=== PATIENT | male | born 1970 | race African-American/Black ===

== ENCOUNTER 2016-11-25 21:53 | Emergency (ER) | payer SELFPAY ==
--- NOTE | 2016-11-25 22:12 | ER Document Report ---
ED General - General Mode of Arrival: Medic Information source: Patient TRAVEL OUTSIDE OF THE [place] IN LAST 30 DAYS: No <DANTE VELA - Last Filed: 11/25/16 22:22> <MARIA NUÑEZ - Last Filed: 11/26/16 00:12> <NEMESIO QUILES - Last Filed: 11/26/16 08:04> - General Stated Complaint: ABDOMINAL PAIN Notes: 46 year old male presents to the ED via EMS intoxicated and aggressive complaining of rectal bleeding. Upon entering the room, the patient demanded that someone "look up my rectum" and threateningly approached the physician. [facility] security were already standing by the room secondary to a history of this patient arriving intoxicated and belligerent and complaining of rectal bleeding. Past [facility] reports indicate that no GI bleed was documented. Patient was not cooperative for a proper examination. (DANTE VELA) - Related Data Allergies/Adverse Reactions: No Known Allergies Allergy (Verified 09/22/15 19:09) Past Medical History - General Information source: [facility] Records - Social History Smoking Status: Unknown if Ever Smoked Frequency of alcohol use: Heavy Family History: Reviewed & Not Pertinent Neurological Medical History: Reports: Hx Seizures - Probably EtOH withdrawal seizure GI Medical History: Reports: Hx Cirrhosis Psychiatric Medical History: Reports: Hx Depression Past Surgical History: Reports: Hx Orthopedic Surgery - L forearm, Back - Immunizations Immunizations up to date: No Hx Diphtheria, Pertussis, Tetanus Vaccination: No - unknown <DANTE VELA - Last Filed: 11/25/16 22:22> Review of Systems - Review of Systems Gastrointestinal: See HPI, Rectal bleeding <DANTE VELA - Last Filed: 11/25/16 22:22> <MARIA NUÑEZ - Last Filed: 11/26/16 00:12> <NEMESIO QUILES - Last Filed: 11/26/16 08:04> - Review of Systems Notes: A comprehensive ROS was unobtainable secondary to the patient's status. (DANTE VELA) Physical Exam - General General appearance: Alert, Other - Patient was uncooperative and approached the physician threateningly. - Respiratory Respiratory status: No respiratory distress - Cardiovascular Rhythm: Regular - Extremities General upper extremity: Normal inspection, Normal ROM General lower extremity: Normal inspection, Normal ROM, Normal weight bearing - Psychological Associated symptoms: Aggressive, Angry, Combative, Uncooperative, Other - Patient was heavily intoxicated and aggressive. - Skin Skin Color: Normal <DANTE VELA - Last Filed: 11/25/16 22:22> - Vital signs Interpretation: Normal - General General appearance: Appears well, Alert In distress: None - HEENT Head: Normocephalic, Atraumatic Eyes: Normal Pupils: PERRL Neck: Normal - Respiratory Breath sounds: Normal - Abdominal Inspection: Normal - Back Back: Normal - Neurological Neuro grossly intact: Yes - Skin Skin Temperature: Warm Skin Moisture: Dry Skin Color: Normal <MARIA NUÑEZ - Last Filed: 11/26/16 00:12> <NEMESIO QUILES - Last Filed: 11/26/16 08:04> - Vital signs Vitals: Temp Pulse Resp BP Pulse Ox 98 F 82 18 131/92 H 100 11/25/16 22:25 11/25/16 22:25 11/25/16 22:25 11/25/16 22:25 11/25/16 22:25 (MARIA NUÑEZ) (NEMESIO QUILES) - Notes Notes: Patient is heavily intoxicated, uncooperative, and approached the physician threateningly. A complete physical exam was unobtainable because of the situation. (DANTE VELA) - General Notes: Of noxious, intoxicated, threatening (MARIA NUÑEZ) Course - Laboratory Result Diagrams: 11/25/16 22:05 11/25/16 22:05 <DANTE VELA - Last Filed: 11/25/16 22:22> - Laboratory Result Diagrams: 11/25/16 22:05 11/25/16 22:05 - Transfer of Care Care transferred to following provider: Dr. Quiles <MARIA NUÑEZ - Last Filed: 11/26/16 00:12> - Laboratory Result Diagrams: 11/25/16 22:05 11/25/16 22:05 <NEMESIO QUILES - Last Filed: 11/26/16 08:04> - Re-evaluation Re-evalutation: 11/25/16 23:39 Patient comes emergency room by EMS extremely alcohol intoxicated complaining of rectal bleeding. He has been here several times complaining of rectal bleeding while extremely intoxicated and always had stable hemoglobin. It appears this visit is no different from the previous visits. He is quite vulgar, yelling, and making threatening gestures. He was restrained by security, as is frequently the case with this patient. 11/26/16 00:12 The patient's alcohol level is 410, and he is positive for cocaine. His hemoglobin again is similar to the level is has been on every other visit. (MARIA NUÑEZ) Patient is now awake and alert. He looks well. I had him stand and walk. He has no tremor. He denies any symptoms of withdrawal. He does say he drinks daily. He is clinically sober. I did have him stand and walk down the hallway. He does have a slight limp with his left leg. He does not remember any trauma or injuries. He is able walk with only a mild limp. He denies any other pain other than mild headache which I suspect is from him having alcohol level of over 400 when he first arrived. At this time patient does says he feels good to go home. I encourage her to return to ER if he has any signs or symptoms of withdrawal, vomiting, or feels unwell. Patient agrees with plan will be discharged home. I talked to patient at length and informed him that he should drink alcohol in small amounts only to help prevent withdrawal. I informed him not to binge drink or drink large amounts. Patient agrees with plan will be discharged home. 11/26/16 08:00 (NEMESIO QUILES) - Vital Signs Vital signs: Temp Pulse Resp BP Pulse Ox 98 F 82 18 131/92 H 100 11/25/16 22:25 11/25/16 22:25 11/25/16 22:25 11/25/16 22:25 11/25/16 22:25 (MARIA NUÑEZ) (NEMESIO QUILES) - Laboratory Laboratory results interpreted by me: 11/25/16 11/25/16 11/25/16 22:05 22:05 23:00 RBC 3.69 L Hgb 11.9 L Hct 34.9 L RDW 17.7 H Plt Count 139 L AST 83 H Urine Blood LARGE H Acetaminophen < 10 L Serum Alcohol 410 H* (MARIA NUÑEZ) (NEMESIO QUILES) - Transfer of Care Notes: 11/26/16 00:19 Patient is currently in 4. restraint, she presenting alcohol level was 410. He is positive for cocaine. He will remain in restraints until he can cooperate and not be a threat to himself or others. When his alcohol level has dropped to an acceptable level, he may be discharged home with a responsible sober adult. (MARIA NUÑEZ) Discharge <DANTE VELA - Last Filed: 11/25/16 22:22> <MARIA NUÑEZ - Last Filed: 11/26/16 00:12> <NEMESIO QUILES - Last Filed: 11/26/16 08:04> - Discharge Clinical Impression: Cocaine abuse Alcohol intoxication Qualifiers: Complication of substance-induced condition: with unspecified complication Qualified Code(s): F10.129 - Alcohol abuse with intoxication, unspecified Condition: Stable Disposition: HOME, SELF-CARE Additional Instructions: Acute Alcohol Intoxication: Your evaluation revealed very high levels of alcohol. You can from drinking a large amount of alcohol rapidly! Further, there's the risk of falls , traffic accidents, and fights. A high portion (about 50 percent) of the serious injuries seen in hospital emergency rooms are caused by alcohol. Alcohol overdosage is usually due to an underlying emotional or psychiatric problem. You may benefit from counselling. If "binge" drinking is an ongoing problem for you, or if you drink ANY AMOUNT of alcohol EVERY day, you most likely have a tendency to alcoholism. You should avoid alcohol totally. We can refer you for treatment. Persons with alcohol problems are often also prone to other addictions -- you should discuss any use of medications or drugs with the doctor. You should be watched at home for the next several hours by someone who has not been drinking. Get extra fluids for the next 24 hours. Call the doctor if there is repeated vomiting, increasing headache, decreasing level of alertness, or any other worsening. Cocaine Abuse: Cocaine causes many dangerous medical problems. Problems can occur even with "usual" amounts. Cocaine affects judgement, creating a sense of invulnerability. Cocaine users often make bad decisions that seem "great" at the time. Most cocaine users eventually will be hurt by bad job performance, damaged personal relations, crime, and unsafe sexual practices. Toxic effects of cocaine can include seizures, hallucinations, delusions, high blood pressure, heart damage, or sudden . There's always the risk of a "bad batch." But heart attacks, brain hemorrhages, or cardiac arrest can occur unpredictably even with "normal" use. Injection of cocaine is risky for abscesses, endocarditis (heart infection) , pneumonia, and AIDS. STOP DRINKING ALCOHOL AND USING COCAINE. FOLLOW UP WITH [facility] FOR DETOX OPTIONS. Scribe Attestation: 11/25/16 23:41 I personally performed the services described in the documentation, reviewed and edited the documentation which was dictated to the scribe in my presence, and it accurately records my words and actions. (MARIA NUÑEZ) Scribe Documentation - Scribe Written by Lisa:: Lisa Jones, 11/25/2016 22:14 acting as scribe for :: Amanda <DANTE VELA - Last Filed: 11/25/16 22:22>
[2016-11-25 22:20] LABS: ABSOLUTE BASOPHILS # (AUTO) 0.1 10^3/uL (0.0-0.2); ABSOLUTE EOSINOPHILS # (AUTO) 0.1 10^3/uL (0.0-0.6); ABSOLUTE MONOCYTES (AUTO) 0.3 10^3/uL (0.1-1.4); ABSOLUTE NEUT (AUTO) 2.4 10^3/uL (1.7-8.2); BASOPHILS % (AUTO) 1.5 % (0-2); EOSINOPHILS % (AUTO) 1.2 % (0-6); HEMATOCRIT 34.9 % (37.9-51.0); HEMOGLOBIN 11.9 g/dL (13.5-17.0); HGB HCT DIFFERENCE 0.8; LYMPHOCYTES % (AUTO) 40.9 % (13-45); MEAN CORPUSCULAR HEMOGLOBIN 32.2 pg (27.0-33.4); MEAN CORPUSCULAR VOLUME 95 fl (80-97); MONOCYTES % (AUTO) 7.2 % (3-13); RED BLOOD COUNT 3.69 10^6/uL (4.35-5.55); RED CELL DISTRIBUTION WIDTH 17.7 % (11.5-14.0); SEGMENTED NEUTROPHILS % (AUTO) 49.2 % (42-78); WHITE BLOOD COUNT 4.8 10^3/uL (4.0-10.5)
[2016-11-25 22:33] LABS: ALANINE AMINOTRANSFERASE 72 U/L (21-72); ALBUMIN 4.7 g/dL (3.5-5.0); ALKALINE PHOSPHATASE 93 U/L (38-126); ANION GAP 13 (5-19); ASPARTATE AMINO TRANSFERASE 83 U/L (17-59); BILIRUBIN,TOTAL 0.5 mg/dL (0.2-1.3); BLOOD UREA NITROGEN 12 mg/dL (7-20); CALCIUM 8.7 mg/dL (8.4-10.2); CARBON DIOXIDE 25 mmol/L (22-30); CHLORIDE 106 mmol/L (98-107); CREATININE RESULT 0.68 mg/dL (0.52-1.25); GLUCOSE 86 mg/dL (75-110); LIPASE 149.2 U/L (23-300); POTASSIUM 4.3 mmol/L (3.6-5.0); SODIUM 144.2 mmol/L (137-145); TOTAL PROTEIN 7.6 g/dL (6.3-8.2)
[2016-11-25 22:54] LABS: ALCOHOL 410 mg/dL (NONE DETECTED)
[2016-11-25 23:43] LABS: APPEARANCE,URINE CLEAR; BILIRUBIN,URINE NEGATIVE (NEGATIVE); GLUCOSE, URINE NEGATIVE (NEGATIVE); KETONES,URINE NEGATIVE (NEGATIVE); LEUKOCYTE ESTERASE,URINE NEGATIVE (NEGATIVE); NITRITE,URINE NEGATIVE (NEGATIVE); PROTEIN,URINE NEGATIVE (NEGATIVE); URINE SPECIFIC GRAVITY 1.009; UROBILINOGEN,URINE NEGATIVE mg/dL (<2.0)
[2016-11-26 00:03] LABS: URINE BARBITURATES SCREEN NEGATIVE; URINE METHADONE SCREEN NEGATIVE; URINE PHENCYCLIDINE SCREEN NEGATIVE
[2016-11-26 08:37] VITALS: BP 125/68
== END 2016-11-26 08:38 | disposition home or self-care (01) ==
LOC: ER 21:53
DX: F14.90 Cocaine use, unspecified, uncomplicated (principal); F10.129 Alcohol abuse with intoxication, unspecified; R51 Headache; K62.5 Hemorrhage of anus and rectum; Y90.8 Blood alcohol level of 240 mg/100 ml or more; Z78.1 Physical restraint status
CPT/HCPCS: 99285; 36415; 83690; 85025; 80053; 81001; G0479 ×3; 80307

== ENCOUNTER 2017-04-16 01:07 | Emergency (ER) | payer SELFPAY ==
[2017-04-16 02:06] LABS: APPEARANCE,URINE CLEAR; BILIRUBIN,URINE NEGATIVE (NEGATIVE); GLUCOSE, URINE NEGATIVE (NEGATIVE); KETONES,URINE NEGATIVE (NEGATIVE); LEUKOCYTE ESTERASE,URINE NEGATIVE (NEGATIVE); NITRITE,URINE NEGATIVE (NEGATIVE); PROTEIN,URINE 30 mg/dL (NEGATIVE); URINE SPECIFIC GRAVITY 1.006; UROBILINOGEN,URINE NEGATIVE mg/dL (<2.0)
--- NOTE | 2017-04-16 02:50 | ER Document Report ---
ED General - General Chief Complaint: ETOH Abuse Stated Complaint: FALL TWO DAYS AGO AND SIDE PAIN Time Seen by Provider: 04/16/17 02:40 Mode of Arrival: Ambulatory Information source: Patient TRAVEL OUTSIDE OF THE [place] IN LAST 30 DAYS: No - HPI Notes: Patient is a 46-year-old black male history of alcoholism presents emergency department with report that 2 days ago he accidentally fell off his porch landing on a wood pile on his left side and since that time is had pain to the left postero-lateral chest wall and to the abdomen with bruising. He denies any anterior chest pain. He reports no cough or congestion. He denies any constipation diarrhea dysuria nausea or vomiting. He reports no head injury or neck pain. No midline posterior back pain. No numbness or paresthesia. - Related Data Allergies/Adverse Reactions: No Known Allergies Allergy (Verified 04/16/17 01:39) Past Medical History - General Information source: Patient - Social History Smoking Status: Current Every Day Smoker Chew tobacco use (# tins/day): No Frequency of alcohol use: Heavy Drug Abuse: None Lives with: Family Family History: Reviewed & Not Pertinent Neurological Medical History: Reports: Hx Seizures - Probably ETOH withdrawal seizure Renal/ Medical History: Denies: Hx Peritoneal Dialysis GI Medical History: Reports: Hx Cirrhosis Psychiatric Medical History: Reports: Hx Depression Past Surgical History: Reports: Hx Orthopedic Surgery - L forearm, Back - Immunizations Immunizations up to date: No Hx Diphtheria, Pertussis, Tetanus Vaccination: No - unknown Review of Systems - Review of Systems Notes: REVIEW OF SYSTEMS: CONSTITUTIONAL : Denies fever, chills, or sweats. Denies recent illness. EENT: Denies eye, ear, throat, or mouth pain or symptoms. Denies nasal or sinus congestion or discharge. Denies throat, tongue, or mouth swelling or difficulty swallowing. CARDIOVASCULAR: Denies palpitations or racing or irregular heart beat. Denies ankle edema. RESPIRATORY: Denies cough, cold, or chest congestion. Denies shortness of breath, difficulty breathing, or wheezing. GASTROINTESTINAL: Denies nausea, vomiting, or diarrhea. Denies blood in vomitus, stools, or per rectum. Denies black, tarry stools. Denies constipation. GENITOURINARY: Denies difficulty urinating, painful urination, burning, frequency, blood in urine, or discharge. MUSCULOSKELETAL: Denies back or neck pain or stiffness. Denies joint pain or swelling. SKIN: Denies rash, lesions or sores. HEMATOLOGIC : Patient reports easy bruising. LYMPHATIC: Denies swollen, enlarged glands. NEUROLOGICAL: Denies confusion or altered mental status. Denies passing out or loss of consciousness. Denies dizziness or lightheadedness. Denies headache. Denies weakness or paralysis or loss of use of either side. Denies problems with gait or speech. Denies sensory loss, numbness, or tingling. Denies seizures. PSYCHIATRIC: Denies anxiety or stress. Denies depression, suicidal ideation, or homicidal ideation. ALL OTHER SYSTEMS REVIEWED AND NEGATIVE. Physical Exam - Vital signs Vitals: Temp Pulse Resp BP Pulse Ox 97.8 F 84 18 130/94 H 98 04/16/17 01:14 04/16/17 01:14 04/16/17 01:14 04/16/17 01:04/16/17 01:14 - Notes Notes: PHYSICAL EXAMINATION: GENERAL: Well-appearing, well-nourished and in no acute distress. Very obvious smell of alcohol. HEAD: Atraumatic, normocephalic. EYES: Pupils equal round and reactive to light, extraocular movements intact, sclera anicteric, conjunctiva are injected bilaterally. ENT: Nares patent, oropharynx clear without exudates. Moist mucous membranes. NECK: Normal range of motion, supple without lymphadenopathy LUNGS: Breath sounds clear to auscultation bilaterally and equal. No wheezes rales or rhonchi. HEART: Regular rate and rhythm without murmurs ABDOMEN: nondistended abdomen. No guarding, no rebound. No masses appreciated. Tender with bruising through the left posterolateral rib cage extending into the abdomen. There is no subcutaneous emphysema or gross crepitance, but there is obvious contusion and mild swelling noted. No evidence for abscess or cellulitis. Musculoskeletal: Normal range of motion, no pitting or edema. No cyanosis. NEUROLOGICAL: Cranial nerves grossly intact. Normal speech, normal gait. Normal sensory, motor exams PSYCH: Normal mood, normal affect. SKIN: Warm, Dry, normal turgor, no rashes or lesions noted. Course - Re-evaluation Re-evalutation: 04/16/17 06:53 Vital signs remained stable. No evidence for significant anemia or electrolyte imbalance. Patient's mild alcoholic hepatitis again is presented. Patient has thrombocytopenia without obvious evidence for active bleeding. Discussion was undertaken at length with the patient concerning his alcohol abuse and the resultant thrombocytopenia and alcoholic hepatitis. No evidence for acute hemothorax, rib fracture, splenic injury or other abnormality. - Vital Signs Vital signs: Temp Pulse Resp BP Pulse Ox 98.3 F 84 16 112/71 97 04/16/17 06:15 04/16/17 01:14 04/16/17 06:16 04/16/17 06:16 04/16/17 06:16 - Laboratory Result Diagrams: 04/16/17 01:32 04/16/17 01:32 Laboratory results interpreted by me: 04/16/17 04/16/17 04/16/17 01:32 01:32 01:32 WBC 3.1 L RBC 3.45 L Hgb 11.2 L Hct 34.0 L MCV 99 H RDW 18.9 H Plt Count 54 L Lymphocytes % 47.5 H Absolute Neutrophils 1.3 L Direct Bilirubin 0.5 H AST 233 H ALT 155 H Lipase 320.3 H Urine Protein 30 H Urine Blood LARGE H Serum Alcohol 416 H* Discharge - Discharge Clinical Impression: Thrombocytopenia Alcohol intoxication Qualifiers: Complication of substance-induced condition: with unspecified complication Qualified Code(s): F10.929 - Alcohol use, unspecified with intoxication, unspecified Fall Qualifiers: Encounter type: initial encounter Qualified Code(s): W19.XXXA - Unspecified fall, initial encounter Chest wall contusion Qualifiers: Encounter type: initial encounter Laterality: left Qualified Code(s): S20.212A - Contusion of left front wall of thorax, initial encounter Abdominal wall contusion Qualifiers: Encounter type: initial encounter Qualified Code(s): S30.1XXA - Contusion of abdominal wall, initial encounter Condition: Stable Disposition: HOME, SELF-CARE Instructions: Acute Alcohol Intoxication ([facility]), Contusion ([facility]), Thrombocytopenia ([facility])
[2017-04-16 03:18] LABS: ABSOLUTE LYMPHOCYTES (AUTO) 1.5 10^3/uL (0.5-4.7); ABSOLUTE MONOCYTES (AUTO) 0.3 10^3/uL (0.1-1.4); ABSOLUTE NEUT (AUTO) 1.3 10^3/uL (1.7-8.2); BASOPHILS % (AUTO) 0.3 % (0-2); EOSINOPHILS % (AUTO) 0.9 % (0-6); HEMOGLOBIN 11.2 g/dL (13.5-17.0); HGB HCT DIFFERENCE -0.4; LYMPHOCYTES % (AUTO) 47.5 % (13-45); MEAN CORPUSCULAR HEMOGLOBIN 32.5 pg (27.0-33.4); MEAN CORPUSCULAR VOLUME 99 fl (80-97); MONOCYTES % (AUTO) 8.4 % (3-13); PROTHROMBIN TIME 11.9 SEC (11.4-15.4); RED BLOOD COUNT 3.45 10^6/uL (4.35-5.55); RED CELL DISTRIBUTION WIDTH 18.9 % (11.5-14.0); SEGMENTED NEUTROPHILS % (AUTO) 42.9 % (42-78); WHITE BLOOD COUNT 3.1 10^3/uL (4.0-10.5)
[2017-04-16 03:20] LABS: ALANINE AMINOTRANSFERASE 155 U/L (21-72); ALBUMIN 4.3 g/dL (3.5-5.0); ALKALINE PHOSPHATASE 108 U/L (38-126); ANION GAP 15 (5-19); ASPARTATE AMINO TRANSFERASE 233 U/L (17-59); BILIRUBIN,DIRECT 0.5 mg/dL (0.0-0.4); BILIRUBIN,TOTAL 0.8 mg/dL (0.2-1.3); BLOOD UREA NITROGEN 8 mg/dL (7-20); CALCIUM 8.9 mg/dL (8.4-10.2); CARBON DIOXIDE 26 mmol/L (22-30); CHLORIDE 102 mmol/L (98-107); CREATININE RESULT 0.61 mg/dL (0.52-1.25); GLUCOSE 95 mg/dL (75-110); LIPASE 320.3 U/L (23-300); POTASSIUM 3.7 mmol/L (3.6-5.0); SODIUM 143.1 mmol/L (137-145); TOTAL PROTEIN 7.7 g/dL (6.3-8.2)
[2017-04-16 03:29] LABS: URINE BARBITURATES SCREEN NEGATIVE; URINE METHADONE SCREEN NEGATIVE; URINE OPIATES LOW NEGATIVE; URINE PHENCYCLIDINE SCREEN NEGATIVE
[2017-04-16 03:34] LABS: ANISOCYTOSIS 2+; MICROCYTOSIS SLIGHT; TARGET CELLS 2+
[2017-04-16 03:48] LABS: ALCOHOL 416 mg/dL (NONE DETECTED)
--- NOTE | 2017-04-16 04:50 | RADIOLOGY REPORT (SQ) ---
EXAM DESCRIPTION: CT ABD/PELVIS WITH IV ONLY COMPLETED DATE/TIME: 04/16/2017 4:33 am REASON FOR STUDY: fall with left chest and L abd pain COMPARISON: None. TECHNIQUE: CT scan of the abdomen and pelvis performed using helical scanning technique with dynamic intravenous contrast injection. No oral contrast. Images reviewed with lung, soft tissue, and bone windows. Reconstructed coronal and sagittal MPR images reviewed. Delayed images for evaluation of the urinary system also acquired. All images stored on PACS. All CT scanners at this facility use dose modulation, iterative reconstruction, and/or weight based d osing when appropriate to reduce radiation dose to as low as reasonably achievable (ALARA). [facility]: Dose Right [facility]: CareDose [facility]: Dose Right [facility]: Teradose 4D [facility]: [place] CONTRAST TYPE AND DOSE: 83mL Isovue 370- low osmolar. RENAL FUNCTION: Creatinine 0.6 RADIATION DOSE: 10.06mGy. LIMITATIONS: None. FINDINGS: LOWER CHEST: No significant findings. No nodules or infiltrates. LIVER: Normal size. No masses or dilated ducts. Hepatic steatosis. SPLEEN: Normal size. No focal lesions. PANCREAS: No masses. No significant calcifications. No adjacent inflammation or peripancreatic fluid collections. Pancreatic duct not dilated. GALLBLADDER: No identified stones by CT criteria. No inflammatory changes to suggest cholecystitis. ADRENAL GLANDS: No significant masses or asymmetry. RIGHT KIDNEY AND URETER: 1.3 cm likely benign left renal cyst not definitively characterized. No sig nificant calcifications. No hydronephrosis or hydroureter. LEFT KIDNEY AND URETER: No solid masses. No significant calcifications. No hydronephrosis or hydr oureter. AORTA AND VESSELS: No aneurysm. No dissection. Renal arteries, SMA, celiac without stenosis. RETROPERITONEUM: No retroperitoneal adenopathy, hemorrhage or masses. BOWEL AND PERITONEAL CAVITY: No masses or inflammatory changes. No free fluid or peritoneal masses. APPENDIX: Normal. PELVIS: No mass or free fluid. Normal bladder. ABDOMINAL WALL: No masses. No hernias. BONES: No significant or acute findings. OTHER: No other significant finding. IMPRESSION: No acute findings. TECHNICAL DOCUMENTATION: JOB ID: [id number] Quality ID # [id number]: Final reports with documentation of one or more dose reduction techniques (e.g., Au tomated exposure control, adjustment of the mA and/or kV according to patient size, use of iterative reconstruction technique) 2010 [employer]- All Rights Reserved
--- NOTE | 2017-04-16 04:52 | RADIOLOGY REPORT (SQ) ---
"EXAM DESCRIPTION: CT CHEST WITH COMPLETED DATE/TIME: 04/16/2017 4:33 am REASON FOR STUDY: fall with left chest and L abd pain COMPARISON: None. TECHNIQUE: CT scan of the chest performed using helical scanning technique with dynamic intravenous contrast injection. Images reviewed with lung, soft tissue and bone windows. Reconstructed coronal and sagittal MPR images reviewed. All images stored on PACS. All CT scanners at this facility use dose modulation, iterative reconstruction, and/or weight based d osing when appropriate to reduce radiation dose to as low as reasonably achievable (ALARA). [facility]: Dose Right [facility]: CareDose [facility]: Dose Right [facility]: Teradose 4D [facility]: [employer] CONTRAST TYPE AND DOSE: 83mL Isovue 370- low osmolar. RENAL FUNCTION: Creatinine 0.6 RADIATION DOSE: 603 mgy-cm LIMITATIONS: None. FINDINGS: LUNGS AND PLEURA: No opacities, nodules, masses. No pneumothorax. No effusions. HILAR AND MEDIASTINAL STRUCTURES: No identified masses or abnormal nodes. HEART AND VASCULAR STRUCTURES: No aneurysm or dissection. No central pulmonary emboli. No pericardi al effusion. HARDWARE: None in the chest. UPPER ABDOMEN: See separate report of the CT of the abdomen. THYROID AND OTHER SOFT TISSUES: No masses. No adenopathy. BONES: No significant finding. OTHER: No other significant finding. IMPRESSION: NORMAL CT OF THE CHEST WITH IV CONTRAST. TECHNICAL DOCUMENTATION: JOB ID: [id number] Quality ID # [id number]: Final reports with documentation of one or more dose reduction techniques (e.g., Au tomated exposure control, adjustment of the mA and/or kV according to patient size, use of iterative reconstruction technique) 2010 [employer] | [employer]- All Rights Reserved"
[2017-04-16 06:18] VITALS: BP 112/71
== END 2017-04-16 06:35 | disposition home or self-care (01) ==
LOC: ER 01:07
DX: S20.212A Contusion of left front wall of thorax, initial encounter (principal); S30.1XXA Contusion of abdominal wall, initial encounter; W17.89XA Other fall from one level to another, initial encounter; F10.229 Alcohol dependence with intoxication, unspecified; D69.6 Thrombocytopenia, unspecified; K70.10 Alcoholic hepatitis without ascites; F17.200 Nicotine dependence, unspecified, uncomplicated
CPT/HCPCS: 36415; 71260; 74177; 80053; 80307; 81001; 83690; 85025; 85610; 99284

== ENCOUNTER 2018-02-25 02:01 | Emergency (ER) | payer SELFPAY ==
[2018-02-25] MEDS ORDERED: FAMOTIDINE 20 MG TABLET PO ONE (02:16)
[2018-02-25] MEDS ORDERED: HALOPERIDOL LACTATE INJ 5 MG/1 ML VIAL IV ONE (02:16)
--- NOTE | 2018-02-25 02:18 | ER Document Report ---
ED General - General Chief Complaint: Chest Pain Stated Complaint: CHEST PAIN Time Seen by Provider: 02/25/18 02:08 Cannot obtain history due to: Intoxicated Notes: Patient is a 47-year-old male with a past medical history of chronic daily alcohol abuse, history of alcohol withdrawal seizures, who presents with multiple complaints. Patient states that he has been having chest pain to the left side of the chest but when he points to the areas of pain he points to the entire chest abdomen and pelvis and back. He has difficulty characterizing what improves or worsens this pain. He denies that he is new or different about his pain today relative to the past several days. He does report that he had vomiting today that contains small amount of blood but has subsequently not had any additional episodes of vomiting. He has not seen his primary care doctor regarding these concerns. He denies any known cardiac history. Denies any trauma to the chest wall. Admits to heavy alcohol use today and is visibly intoxicated. TRAVEL OUTSIDE OF THE [place] IN LAST 30 DAYS: No - Related Data Allergies/Adverse Reactions: No Known Allergies Allergy (Verified 04/16/17 01:39) Past Medical History - General Information source: Patient - Social History Smoking Status: Current Every Day Smoker Frequency of alcohol use: Heavy Drug Abuse: None Lives with: Alone Family History: Reviewed & Not Pertinent Patient has suicidal ideation: No Patient has homicidal ideation: No Neurological Medical History: Reports: Hx Seizures - Probably ETOH withdrawal seizure Renal/ Medical History: Denies: Hx Peritoneal Dialysis GI Medical History: Reports: Hx Cirrhosis Psychiatric Medical History: Reports: Hx Depression Past Surgical History: Reports: Hx Orthopedic Surgery - L forearm, Back - Immunizations Immunizations up to date: No Hx Diphtheria, Pertussis, Tetanus Vaccination: No - unknown Review of Systems - Review of Systems Notes: Constitutional: Negative for fever. HENT: Negative for sore throat. Eyes: Negative for visual changes. Cardiovascular: Positive for chest pain. Respiratory: Negative for shortness of breath. Gastrointestinal: Positive for abdominal pain and vomiting Genitourinary: Negative for dysuria. Musculoskeletal: Negative for back pain. Skin: Negative for rash. Neurological: Negative for headaches, weakness or numbness. 10 point ROS negative except as marked above and in HPI. Physical Exam - Vital signs Vitals: Temp 98.2 F 02/25/18 02:12 Interpretation: Normal Notes: PHYSICAL EXAMINATION: GENERAL: Intoxicated, mildly agitated but in no acute distress HEAD: Atraumatic, normocephalic. EYES: Pupils equal round and reactive to light, extraocular movements intact, sclera anicteric, conjunctiva are normal. ENT: nares patent, oropharynx clear without exudates. Dry mucous membranes. NECK: Normal range of motion, supple without lymphadenopathy LUNGS: Breath sounds clear to auscultation bilaterally and equal. No wheezes rales or rhonchi. HEART: Regular rate and rhythm without murmurs ABDOMEN: Soft, nontender, normoactive bowel sounds. No guarding, no rebound. No masses appreciated. EXTREMITIES: Normal range of motion, no pitting or edema. No cyanosis. NEUROLOGICAL: No focal neurological deficits. Moves all extremities spontaneously and on command. PSYCH: Intoxicated SKIN: Warm, Dry, normal turgor, no rashes or lesions noted. Course - Re-evaluation Re-evalutation: 02/25/18 02:17 Patient presents with diffuse chest wall pain that is been present for several days. He admits to heavy alcohol use and smells very strongly of alcohol at time of presentation. He does appear clinically intoxicated. He states that he vomited tonight with some small amounts of blood in the vomitus but has not vomited again since. Patient is otherwise nontoxic in appearance, vitals within normal limits, in no distress. Low clinical suspicion for ACS given clinical history, exam, EKG without ST elevations or depressions, and negative initial troponin. HEART score less than or equal to 3. PE also seems unlikely given clinical history, absence of tachycardia or dyspnea. Patient is PERC criteria negative. CXR without evidence of pneumothorax or pneumonia. No widened mediastinum. Aortic dissection also seems unlikely given history, symmetric pulses, CXR, and vitals. 02/25/18 03:51 I have had a conversation with the patient and his family about his long-term alcohol use and how this is likely contributing to him causing his symptoms. I have again emphasized with the patient that I would recommend alcohol cessation and have recommended following up with detox resources. At this time will discharge with return precautions and follow-up recommendations. Verbal discharge instructions given a the bedside and opportunity for questions given. Medication warnings reviewed. Patient is in agreement with this plan and has verbalized understanding of return precautions and the need for primary care follow-up in the next 24-72 hours. - Vital Signs Vital signs: Temp Pulse Resp BP Pulse Ox 98.2 F 14 141/66 H 97 02/25/18 02:12 02/25/18 03:00 02/25/18 03:00 02/25/18 03:00 - Laboratory Result Diagrams: 02/25/18 02:50 02/25/18 02:50 Laboratory results interpreted by me: 02/25/18 02/25/18 02:50 02:50 WBC 3.3 L RBC 3.64 L Hgb 11.7 L Hct 35.3 L RDW 19.4 H Plt Count 87 L Seg Neutrophils % 40.2 L Lymphocytes % 50.0 H Absolute Neutrophils 1.3 L BUN 6 L - Diagnostic Test Radiology reviewed: Image reviewed, Reports reviewed Radiology results interpreted by me: 02/25/18 02:57 Chest x-ray: No acute infiltrate or pneumothorax - EKG Interpretation by Me Additional EKG results interpreted by me: 02/25/18 02:57 Sinus rhythm. Rate 81. No ST elevations or depressions. QTC is 446. Discharge - Discharge Clinical Impression: Alcohol abuse Chest pain Qualifiers: Chest pain type: unspecified Qualified Code(s): R07.9 - Chest pain, unspecified Nausea and vomiting Qualifiers: Vomiting type: unspecified Vomiting Intractability: non-intractable Qualified Code(s): R11.2 - Nausea with vomiting, unspecified Condition: Good Disposition: HOME, SELF-CARE Additional Instructions: You were seen today for chest pain. The exact cause of your pain is unclear. However, based on your cardiac enzyme testing, chest x-ray, and EKG it does not appear that it is from an immediately life-threatening cause at this time. Although your testing here is normal is critical that you follow-up with your primary care physician for continued evaluation of this chest pain and possible stress testing. I recommended you see your physician within the next 24-48 hours to be evaluated for consideration of a stress test. Please return to emergency department immediately if you have worsening of your chest pain, shortness of breath, vomiting, become unable to exert yourself due to pain or difficulty breathing, you pass out, or have any pain that radiates into your arms, jaw, or back. Please also return if you have any additional symptoms that are concerning to you. Referrals: OJASON SHEN MD [Primary Care Provider] - Follow up in 3-5 days
[2018-02-25] MEDS ORDERED: LIDOCAINE 5% (700 MG) TRANSDERMAL ADH..PATCH TP SCH (02:30)
--- NOTE | 2018-02-25 02:41 | RADIOLOGY REPORT (SQ) ---
EXAM DESCRIPTION: CHEST SINGLE VIEW CLINICAL HISTORY: cp COMPARISON: 02/08/2016 FINDINGS: Single frontal view of the chest. The cardiomediastinal silhouette has normal size and contour. No consolidation, pneumothorax, or pleural effusion. Leads overlie the chest. No displaced rib fractures identified. Upper abdominal soft tissues are unremarkable. IMPRESSION: 1. No acute pulmonary process identified.
[2018-02-25 03:14] LABS: ABSOLUTE LYMPHOCYTES (AUTO) 1.7 10^3/uL (0.5-4.7); ABSOLUTE MONOCYTES (AUTO) 0.3 10^3/uL (0.1-1.4); ABSOLUTE NEUT (AUTO) 1.3 10^3/uL (1.7-8.2); BASOPHILS % (AUTO) 0.5 % (0-2); EOSINOPHILS % (AUTO) 1.2 % (0-6); HEMATOCRIT 35.3 % (37.9-51.0); HEMOGLOBIN 11.7 g/dL (13.5-17.0); MEAN CORPUSCULAR HEMOGLOBIN 32.2 pg (27.0-33.4); MEAN CORPUSCULAR HGB CONC 33.2 g/dL (32.0-36.0); MEAN CORPUSCULAR VOLUME 97 fl (80-97); MONOCYTES % (AUTO) 8.1 % (3-13); RED BLOOD COUNT 3.64 10^6/uL (4.35-5.55); RED CELL DISTRIBUTION WIDTH 19.4 % (11.5-14.0); SEGMENTED NEUTROPHILS % (AUTO) 40.2 % (42-78); TOTAL CELLS COUNTED % (AUTO) 100 %; WHITE BLOOD COUNT 3.3 10^3/uL (4.0-10.5)
[2018-02-25 03:16] LABS: ANION GAP 10 (5-19); BLOOD UREA NITROGEN 6 mg/dL (7-20); CALCIUM 8.6 mg/dL (8.4-10.2); CARBON DIOXIDE 26 mmol/L (22-30); CHLORIDE 105 mmol/L (98-107); GLUCOSE 90 mg/dL (75-110); POTASSIUM 3.7 mmol/L (3.6-5.0); SODIUM 141.3 mmol/L (137-145)
[2018-02-25 03:38] LABS: PLATELET COUNT 87 10^3/uL (150-450)
[2018-02-25 03:53] VITALS: BP 112/65
--- NOTE | 2018-02-25 10:49 | EKG REPORT ---
SEVERITY:- ABNORMAL ECG - SINUS RHYTHM ST ELEVATION SUGGESTS PERICARDITIS VS EARLY REPOL CHANGES : Confirmed by: Summer Lee 25-Feb-2018 10:48:40
== END 2018-02-25 03:55 | disposition home or self-care (01) ==
LOC: ER 02:01
DX: R07.9 Chest pain, unspecified (principal); R11.2 Nausea with vomiting, unspecified; F10.129 Alcohol abuse with intoxication, unspecified; R10.9 Unspecified abdominal pain; F17.200 Nicotine dependence, unspecified, uncomplicated
CPT/HCPCS: 93005; 99285; 96374; 36415; 85025; 80048; 84484; 71045; 93010; J1630

== ENCOUNTER 2019-03-17 02:24 | Emergency (ER) | payer SELFPAY ==
[2019-03-17 03:04] LABS: ABSOLUTE EOSINOPHILS # (AUTO) 0.1 10^3/uL (0.0-0.6); ABSOLUTE LYMPHOCYTES (AUTO) 2.3 10^3/uL (0.5-4.7); ABSOLUTE MONOCYTES (AUTO) 0.4 10^3/uL (0.1-1.4); ABSOLUTE NEUT (AUTO) 1.8 10^3/uL (1.7-8.2); BASOPHILS % (AUTO) 0.5 % (0-2); EOSINOPHILS % (AUTO) 1.3 % (0-6); HEMATOCRIT 40.4 % (37.9-51.0); HEMOGLOBIN 13.8 g/dL (13.5-17.0); LYMPHOCYTES % (AUTO) 50.7 % (13-45); MEAN CORPUSCULAR HEMOGLOBIN 33.4 pg (27.0-33.4); MEAN CORPUSCULAR HGB CONC 34.1 g/dL (32.0-36.0); MEAN CORPUSCULAR VOLUME 98 fl (80-97); MONOCYTES % (AUTO) 7.9 % (3-13); PLATELET COUNT 236 10^3/uL (150-450); RED BLOOD COUNT 4.12 10^6/uL (4.35-5.55); RED CELL DISTRIBUTION WIDTH 17.3 % (11.5-14.0); SEGMENTED NEUTROPHILS % (AUTO) 39.6 % (42-78); TOTAL CELLS COUNTED % (AUTO) 100 %; WHITE BLOOD COUNT 4.5 10^3/uL (4.0-10.5)
--- NOTE | 2019-03-17 03:08 | ER Document Report ---
ED GI/ - General Chief Complaint: Urinary Problem Stated Complaint: POSSIBLE RECTAL BLEEDING Time Seen by Provider: 03/17/19 02:29 Primary Care Provider: [facility] [Provider Group] - Follow up as needed UROLOGY [Provider Group] - Follow up as needed JASON HARLEY MD [ACTIVE STAFF] - Follow up as needed TRAVEL OUTSIDE OF THE [place] IN LAST 30 DAYS: No - HPI Notes: 03/17/19 Patient is a 48-year-old -[place] male with a history of pancreatitis and cirrhosis who arrives to the emergency department via EMS for the chief complaint of urinary symptoms. Patient states that he has had painful urination times 24 hours. Denies penile discharge. Denies obvious blood or clots in the urine. Denies flank pain, denies fever. States that this has never happened before. Denies testicular pain. She does report a history of cirrhosis and pancreatitis. Patient is sexually active, with a partner, and does not use protection. He is concerned with possible STD exposure due to symptoms. Patient also complaint of rectal bleeding that occurred once over the past 24 hours. Last bowel movement was yesterday and reports that it was dark in color and green. Patient denies chills. Patient also reports generalized abdominal pain and nausea. Denies vomiting. Patient states that he is a daily alcoholic drinker and over the past 24 hours has had a case of beer. Patient also complaint of left-sided chest pain, when asked to point where his pain is located in his chest patient points to the left upper quadrant of his abdomen. 03/17/19 08:27 - Related Data Allergies/Adverse Reactions: No Known Allergies Allergy (Verified 04/16/17 01:39) Past Medical History - General Information source: Patient - Social History Smoking Status: Unknown if Ever Smoked Frequency of alcohol use: Heavy Family History: Reviewed & Not Pertinent Patient has suicidal ideation: No Patient has homicidal ideation: No - Past Medical History Cardiac Medical History: Reports: None Pulmonary Medical History: Reports: None EENT Medical History: Reports: None Neurological Medical History: Reports: Hx Seizures - Probably ETOH withdrawal seizure Endocrine Medical History: Reports: None Renal/ Medical History: Reports: None. Denies: Hx Peritoneal Dialysis Malignancy Medical History: Reports None GI Medical History: Reports: Hx Cirrhosis Musculoskeletal Medical History: Reports None Skin Medical History: Reports None Psychiatric Medical History: Reports: Hx Depression Traumatic Medical History: Reports: None Infectious Medical History: Reports: None Past Surgical History: Reports: Hx Orthopedic Surgery - L forearm, Back - Immunizations Immunizations up to date: No Hx Diphtheria, Pertussis, Tetanus Vaccination: No - unknown Review of Systems - Review of Systems Constitutional: No symptoms reported EENT: No symptoms reported Cardiovascular: See HPI Respiratory: No symptoms reported Gastrointestinal: See HPI Genitourinary: See HPI Male Genitourinary: See HPI Musculoskeletal: No symptoms reported Skin: No symptoms reported Hematologic/Lymphatic: No symptoms reported Neurological/Psychological: No symptoms reported Physical Exam - Vital signs Vitals: Temp Pulse Resp BP Pulse Ox 97.9 F 102 H 13 126/83 H 97 03/17/19 02:43 03/17/19 02:43 03/17/19 02:43 03/17/19 02:43 03/17/19 02:43 - General General appearance: Appears well, Alert In distress: None - Respiratory Respiratory status: No respiratory distress Chest status: Nontender Breath sounds: Normal Chest palpation: Normal - Cardiovascular Rhythm: Regular Heart sounds: Normal auscultation, S1 appreciated, S2 appreciated - Abdominal Inspection: Normal Distension: No distension Bowel sounds: Normal Tenderness: Other - Patient has generalized tenderness throughout entire abdomen. Organomegaly: No organomegaly - Rectal Tenderness: No Stool: Heme negative Hemorrhoids: External - Small external nonthrombosed hemorrhoid visualized - Genitourinary Inspection: Normal Tenderness: Epididymis tender - Epididymis mildy tender Scrotum: Normal - Skin Skin Temperature: Warm Skin Moisture: Dry Skin Color: Normal Course - Re-evaluation Re-evalutation: 03/17/19 03:07 Rectal exam performed with nurse at bedside. Point of care testing performed and negative heme occult. Patient at this time is sitting upright on stretcher, resting comfortably, continue to monitor and obtain lab results. 03/17/19 05:18 Patient sleeping on stretcher, easy to arouse. Discussed lab results and findings with patient. Patient continues to complain of burning with urination and lingering discomfort. Denies testicular pain or swelling. Patient is requesting something to drink, states that he feels like he would be able to tolerate this. Patient appears to be in no acute distress. P.O. challenge initiated. 03/17/19 06:30 Patient was able to tolerate p.o. challenge. Has generalized abdominal pain has improved. Denies chest pain or shortness of breath. Patient continues to complain of pain "to my penis with urination." Did inform patient that his urine did have blood in it. This was not a new finding as his previous urinalysis on multiple visits have showed hematuria. Discussed the importance of follow up to evaluate the blood in his urine as well as follow up for his pain. Referral given to patient for urology. Patient verbalized understanding and denies questions. States that he does have a ride home. Patient to be discharged when ride available. Initially patient had been complaining of left- sided chest pain that had been intermittent. Patient states that this is been ongoing for 1 month. When asked patient to point to the location of his pain he pointed to the left upper quadrant of his abdomen. An EKG was obtained and no change was noted from the previous ekg. His troponin was negative. Due to his physical exam and denying chest pain throughout his hospital stay I do not think a second troponin is needed. Patient mentating appropriately. Alert and oriented x4. No acute distress. - Vital Signs Vital signs: Temp Pulse Resp BP Pulse Ox 98.6 F 102 H 14 131/83 H 99 03/17/19 07:01 03/17/19 02:43 03/17/19 07:01 03/17/19 07:01 03/17/19 07:01 - Laboratory Result Diagrams: 03/17/19 02:10 03/17/19 02:10 Laboratory results interpreted by me: 03/17/19 03/17/19 03/17/19 02:10 02:10 02:52 RBC 4.12 L MCV 98 H RDW 17.3 H Seg Neutrophils % 39.6 L Lymphocytes % 50.7 H BUN 6 L AST 87 H Urine Blood LARGE H - EKG Interpretation by Me EKG shows normal: Sinus rhythm Rate: Normal Rhythm: NSR - Rate 91, AR 216, QT 344, Qtc 424, no ST elevation or ectopy noted When compared to previous EKG there are: No significant change Discharge - Discharge Clinical Impression: Pain with urination Hematuria Qualifiers: Hematuria type: unspecified type Qualified Code(s): R31.9 - Hematuria, unspecified Abdominal pain Qualifiers: Abdominal location: unspecified location Qualified Code(s): R10.9 - Unspecified abdominal pain Alcohol intoxication Qualifiers: Complication of substance-induced condition: uncomplicated Qualified Code(s): F10.920 - Alcohol use, unspecified with intoxication, uncomplicated Condition: Stable Disposition: HOME, SELF-CARE Additional Instructions: Today you are seen in the emergency department for abdominal pain, rectal bleeding, and burning with urination. You did have blood in your urine. This is not new and has been present in the past few samples you have given at this hospital. Please follow-up with urology, I have provided a referral for you for further evaluation of blood in the urine. A urine culture has been added and we will contact to if change in medication as needed. Due to the generalized abdominal pain and daily alcohol use have prescribed Pepcid, you can take this twice a day. This may help with your discomfort and possible gastritis. Please return to the emergency department if you have severe abdominal pain, fever, rectal bleeding, inability to completely empty your bladder or unable to urinate, vomiting of blood, or any other concerning signs or symptoms. I have also referred you to [facility]. Prescriptions: Famotidine [Pepcid 20 mg Tablet] 20 mg PO BID #20 tablet Referrals: JASON HARLEY MD [ACTIVE STAFF] - Follow up as needed UROLOGY [Provider Group] - Follow up as needed [facility] [Provider Group] - Follow up as needed
[2019-03-17 03:18] LABS: APPEARANCE,URINE SLIGHTLY-CLOUDY; BILIRUBIN,URINE NEGATIVE (NEGATIVE); COLOR,URINE YELLOW; GLUCOSE, URINE NEGATIVE (NEGATIVE); KETONES,URINE NEGATIVE (NEGATIVE); LEUKOCYTE ESTERASE,URINE NEGATIVE (NEGATIVE); NITRITE,URINE NEGATIVE (NEGATIVE); PROTEIN,URINE NEGATIVE (NEGATIVE); URINE SPECIFIC GRAVITY 1.014; UROBILINOGEN,URINE NEGATIVE mg/dL (<2.0)
[2019-03-17 03:23] LABS: ANISOCYTOSIS 1+; POIKILOCYTOSIS 1+; TOXIC GRANULATION 1+; TOXIC VACUOLATION PRESENT
[2019-03-17 03:24] LABS: PLATELET COMMENT ADEQUATE; TEAR DROP CELLS 1+
[2019-03-17 03:29] LABS: ALANINE AMINOTRANSFERASE 65 U/L (21-72); ALBUMIN 4.4 g/dL (3.5-5.0); ALKALINE PHOSPHATASE 117 U/L (38-126); ANION GAP 13 (5-19); ASPARTATE AMINO TRANSFERASE 87 U/L (17-59); BILIRUBIN,DIRECT 0.2 mg/dL (0.0-0.4); BILIRUBIN,TOTAL 0.3 mg/dL (0.2-1.3); BLOOD UREA NITROGEN 6 mg/dL (7-20); CALCIUM 9.9 mg/dL (8.4-10.2); CARBON DIOXIDE 25 mmol/L (22-30); CHLORIDE 104 mmol/L (98-107); GLUCOSE 105 mg/dL (75-110); LIPASE 212.4 U/L (23-300); POTASSIUM 3.9 mmol/L (3.6-5.0); SODIUM 141.9 mmol/L (137-145); TOTAL PROTEIN 7.9 g/dL (6.3-8.2)
[2019-03-17 04:37] LABS: CHLAM PCR NOT DETECTED (NOT DETECT); GON PCR NOT DETECTED (NOT DETECT)
[2019-03-17 07:07] VITALS: BP 131/83
--- NOTE | 2019-03-17 08:08 | EKG REPORT ---
SEVERITY:- ABNORMAL ECG - SINUS RHYTHM FIRST DEGREE AV BLOCK : Confirmed by: Cricket Cole MD 17-Mar-2019 08:07:56
== END 2019-03-17 07:17 | disposition home or self-care (01) ==
LOC: ER 02:24
DX: R30.9 Painful micturition, unspecified (principal); R31.9 Hematuria, unspecified; F10.920 Alcohol use, unspecified with intoxication, uncomplicated; R39.198 Other difficulties with micturition; K62.5 Hemorrhage of anus and rectum; R10.84 Generalized abdominal pain; R11.0 Nausea; R10.12 Left upper quadrant pain
CPT/HCPCS: 36415; 80053; 81001; 83690; 84484; 85025; 86850; 86900; 86901; 87086; 87491; 87591; 93005; 93010; 99284